=== PATIENT | female | born 1960 | race Caucasian/White ===

== ENCOUNTER 2021-07-20 18:31 | Observation (INO) | payer MEDICARE, MEDICAID, SELFPAY ==
--- NOTE | ~2021-07-20 | CT_ITS ---
EXAMINATION: CT abdomen pelvis w con INDICATION: Epigastric pain TECHNIQUE: Computed tomographic images of the abdomen and pelvis were obtained after the administrati on of 100 cc of Omnipaque 350 intravenous contrast. The dose-length product (DLP) was 1401.29 mGy-cm. Automated exposure control and iterative reconstruction technique were employed. COMPARISON: None available FINDINGS: Minimal dependent atelectasis is present in the lung bases. The heart size is normal. Punct ate calcifications in an otherwise normal spleen likely represent healed granulomatous disease. The l iver and pancreas are normal. There are stones in the gallbladder. There appears to be subtle fat str anding surrounding the gallbladder. The common bile duct is mildly dilated. There is a 2.7 cm mass of the left adrenal gland. There is a 2.3 cm mass of the right adrenal gland. In addition, calcificatio n is noted in the right adrenal gland. A 5 mm hypoattenuating lesion of the right kidney is too small to characterize but likely represents a cyst. Left kidney is unremarkable. No pathologically enlarge d abdominal or pelvic lymph nodes are identified. There is no free intraperitoneal gas or evidence of bowel obstruction. The appendix is normal. Colonic diverticulosis is present without evidence of div erticulitis. There is moderate lumbar spondylosis. There are changes of left total hip arthroplasty . IMPRESSION: 1. Cholelithiasis with possible mild fat stranding surrounding the gallbladder, consider early cholec ystitis. 2. Mild enlargement of the common bile duct of unclear etiology. 3. Bilateral adrenal masses, probably benign. In the absence of prior imaging, consider follow-up adr enal CT in 12 months. Reviewed, dictated and finalized at location F. IMPRESSION: 1. Cholelithiasis with possible mild fat stranding surrounding the gallbladder, consider early cholecystitis. 2. Mild enlargement of the common bile duct of unclear etiology. 3. Bilateral adrenal masses, probably benign. In the absence of prior imaging, consider follow-up adrenal CT in 12 months.
--- NOTE | ~2021-07-20 | US_ITS ---
EXAMINATION: US abdomen limited DATE: 07/21/2021 10:38 INDICATION: Acute cholecystitis TECHNIQUE: Multiple grayscale and Doppler ultrasound images of the abdomen were obtained. COMPARISON: None FINDINGS: The pancreatic head and body are normal in appearance. The pancreatic tail is not visualized. Liver has normal echogenicity and contour, with a smooth surface. No liver lesion identified. No intrahepat ic biliary duct dilation suspected. Portal venous flow was seen in the hepatopetal, normal direction and has normal Doppler waveform. Shadowing gallstones are seen within the lumen of the otherwise norm al-appearing gallbladder with no dilation or gallbladder wall thickening. Sonographic Matthew sign was reported as negative by the building surveyor.Common bile duct measures up to 4 mm in maximal diameter whi ch is normal. Visualized portion of the right kidney demonstrates normal echogenicity and contour wit h no hydronephrosis. Visualized proximal inferior vena cava is normal. IMPRESSION: 1. Cholelithiasis. No other findings to suggest acute cholecystitis. If there is continued clinical c oncern would consider HIDA scan for further evaluation. Reviewed, dictated and finalized at location B. IMPRESSION: 1. Cholelithiasis. No other findings to suggest acute cholecystitis. If there i s continued clinical concern would consider HIDA scan for further evaluation.
[2021-07-20 19:00] VITALS: BP 158/70; PULSE 95; RESP 16; TEMP 36.3; O2SAT 99
[2021-07-20 21:17] VITALS: BP 183/77; PULSE 98; RESP 18; O2SAT 97
[2021-07-20 21:37] VITALS: BP 176/77
--- NOTE | 2021-07-20 21:37 | ED.ABDPAIN ---
HPI - Abdominal Pain General Chief Complaint: Abdominal Pain Stated Complaint: constipation Time Seen by Provider: 07/20/21 21:27 Source: patient Mode of arrival: ambulatory Limitations: no limitations History of Present Illness HPI narrative: Patient is a 61-year-old female complaining of epigastric pain, sharp, was 10 out of 10 currently 4 out of 10, radiating to back that started tonight after eating. Patient denies any chest pain, shortness of breath, nausea, vomiting, diarrhea, diaphoresis, fever or chills. Related Data Allergies Allergy/AdvReac Type Severity Reaction Status Date / Time No Known Allergies Allergy Verified 07/20/21 21:47 Review of Systems Review of Systems: All systems reviewed & are unremarkable except as noted in HPI and below Constitutional: Constitutional: Denies body ache(s), Denies chills, Denies excessive sweating, Denies fatigue, Denies fever(s), Denies headache(s), Denies lethargy, Denies malaise, Denies weakness and Denies weight loss Eyes: Eyes: Denies blurry vision, Denies change in vision and Denies loss of vision ENT: Denies dizziness, Denies ear discharge, Denies headache(s), Denies lip swelling, Denies epistaxis, Denies nasal congestion, Denies neck pain, Denies throat swelling and Denies tongue swelling Cardiovascular: Cardiovascular: Denies chest pain, Denies chest pain at rest, Denies chest pain with activity, Denies diaphoresis, Denies rapid heart rate, Denies edema, Denies irregular heart rhythm, Denies lightheadedness, Denies palpitations, Denies dyspnea and Denies dyspnea on exertion Respiratory: Respiratory: Denies chest congestion, Denies cough, Denies hemoptysis, Denies dyspnea and Denies dyspnea on exertion Gastrointestinal: Gastrointestinal: Denies melena, Denies hematochezia, Denies diarrhea, Denies nausea, Denies vomiting and Denies hematemesis Musculoskeletal: Musculoskeletal: Denies abnormal gait, Denies deformity, Denies joint swelling, Denies limited range of motion, Denies neck pain and Denies numbness Neurologic: Denies Abnormal speech present, Denies abnormal gait, Denies confusion, Denies dizziness, Denies headache(s), Denies focal weakness, Denies loss of vision, Denies numbness, Denies Other visual disturbances, Denies Sensory deficit (Neuro) and Denies weakness Psychiatric: Psychiatric: Denies confusion, Denies depression, Denies auditory hallucinations, Denies homicidal ideation and Denies suicidal ideation Endocrine: Endocrine: Denies cold intolerance, Denies excessive sweating, Denies fatigue, Denies heat intolerance and Denies palpitations Hematologic/Lymphatic: Hematologic/Lymphatic: Denies easy bleeding and Denies easy bruising Allergic/Immunologic: Allergic/Immunologic: Denies lip swelling, Denies throat swelling and Denies tongue swelling PMFSH Comments Past medical history: Hypertension Family history: Unknown Social history: Positive for smoker, occasional EtOH use, no drug use Exam Const: General: cooperative, healthy appearing, comfortable, no acute distress, well developed, alert and awake; No confusion Orientation/consciousness: oriented to person, oriented to place, oriented to time, patient oriented x3 and No confusion Limitations: no limitations HENMT: Head: normal to inspection, normocephalic and atraumatic Ears: hearing grossly normal bilaterally, TM normal on the right and TM normal on the left General nose exam: Normal external nose present, Normal nares present and No nasal discharge present Face and sinus: normal facial exam Mouth: Yes Normal oral and palatal mucosa present, Yes lip normal, Yes tongue normal and Yes oropharynx normal Throat: posterior oropharynx normal, tonsils normal and uvula midline Eyes: General: appearance normal, both eyes and all related structures Pupils: Equal, round and reactive pupils present EOM: EOMs intact bilaterally Neck: Neck: normal visual inspection, full ROM, no lymphadenopathy and no meningeal signs
[2021-07-20] MEDS: MAG HYDROX/AL HYDROX/SIMETH 30 ML UDC PO (21:48)
[2021-07-20 21:55] LABS: Basophils Percent Auto 0.2 % (0.2-1.2); Hematocrit 45.2 % (37.0-47.0); Hemoglobin 14.3 g/dL (12.0-15.0); Immature Granulocyte Absolute 0.04 K/mm3 (0.00-0.031); Immature Granulocyte Percent A 0.4 % (0-0.5); Lymphocytes Absolute Auto 0.91 K/mm3 (0.9-3.2); Lymphocytes Percent Auto 8.8 % (18.3-44.2); Mean Corpuscular HGB Conc 31.6 g/dl (32-36); Mean Corpuscular Hemoglobin 30.9 pg (26-34); Mean Corpuscular Volume 97.6 fl (80-100); Mean Platelet Volume 11.3 fl (7.4-10.4); Monocytes Absolute Auto 0.3 K/mm3 (0.1-0.6); Monocytes Percent Auto 2.6 % (2.6-8.5); Neutrophils Absolute Auto 9.1 K/mm3 (1.3-6.7); Platelet Count Result 226 k/mm3 (150-375); Red Blood Count 4.63 M/mm3 (4.2-5.4); Red Cell Distribution Width 13.7 % (11.5-14.5); White Blood Count 10.3 K/mm3 (4.5-10.0)
[2021-07-20 22:06] LABS: Alanine Aminotransferase 352 U/L (4-35); Alkaline Phosphatase 121 U/L (38-126); Anion Gap 5 mmol/L (8-16); Aspartate Amino Transferase 557 U/L (14-36); Bilirubin,Total 0.9 mg/dL (0.2-1.3); Blood Urea Nitrogen 26 mg/dL (7-17); Calcium 8.7 mg/dL (8.4-10.2); Carbon Dioxide 30 mmol/L (22-30); Chloride 104 mmol/L (98-107); Estimated CRCL calculation 74 ml/min; Estimated Glomerular Filt Rate > 60; Glucose 142 mg/dL (65-110); Lipase 262 U/L (23-300); Potassium 5.1 mmol/L (3.4-5.0); Sodium 139 mmol/L (137-145)
[2021-07-20 22:08] VITALS: PULSE 94; RESP 18; O2SAT 99
[2021-07-20 22:18] LABS: Troponin I < 0.012 ng/mL (0.000-0.034)
--- NOTE | 2021-07-20 23:04 | PC.NURSE ---
Pt reports improved s/s after medication administration. Rates pain 0/10
[2021-07-20 23:27] VITALS: BP 180/82
--- NOTE | 2021-07-20 23:27 | PC.NURSE ---
Pt requesting update. This Rn explained to pt that EDP Edmonds is in room with critical patient and will update with results when available. Pt also states she did not take her HTN medications this AM (20mg Lisinopril)
[2021-07-20 23:54] VITALS: BP 175/87; PULSE 94; RESP 18; O2SAT 97
[2021-07-21] VITALS (22 sets, daily range): BP systolic 105–189; BP diastolic 35–88; PULSE 57–97; RESP 14–20; TEMP 35.8–37.2; O2SAT 93–100; BMI 45.2
[2021-07-21] MEDS: lisinopriL 20 MG TABLET PO ×2 (01:05→09:41)
[2021-07-21] MEDS: PIPERACILLIN/TAZOBACTAM SOD 4.5 GM in SODIUM CHLORIDE 0.9% IV 100 ML 200 ML IVPB (01:06)
--- NOTE | 2021-07-21 01:34 | ED.ABDPAIN ---
HPI - Abdominal Pain General Chief Complaint: Abdominal Pain Stated Complaint: constipation Time Seen by Provider: 07/20/21 21:27 Source: patient Mode of arrival: ambulatory Limitations: no limitations History of Present Illness HPI narrative: Pt presents with epigastric abdominal pain since after eating a [employer] for lunch. Pt denies vomiting or fever. Pt sasy she had an episode about a week ago which resolved. Pt also had a diarheal stool at that time which she said was very dark. MD elicited complaint: abdominal pain Pain Consistency: constant Location: epigastric and RUQ Severity: moderate Quality: cramping Migration to: no migration Exacerbating factors: eating Relieving factors: nothing Related Data Home Medications Medication Instructions Recorded Confirmed diclofenac sodium 75 mg PO BID 07/20/21 07/21/21 gabapentin 300 mg PO USEASDIRECTD 07/20/21 07/21/21 lisinopril 20 mg PO DAILY 07/20/21 07/21/21 mirabegron [Myrbetriq] 50 mg PO DAILY 07/20/21 07/21/21 omeprazole 40 mg PO DAILY 07/20/21 07/21/21 tizanidine 4 mg PO Q8-10H PRN 07/20/21 07/21/21 albuterol sulfate 90 mcg INHALATION BID PRN 07/21/21 07/21/21 cholecalciferol (vitamin D3) 1,250 mcg PO WEEKLY 07/21/21 07/21/21 hydrochlorothiazide 12.5 mg PO DAILY 07/21/21 07/21/21 tramadol 50 mg PO DAILY PRN 07/21/21 07/21/21 Allergies Allergy/AdvReac Type Severity Reaction Status Date / Time No Known Allergies Allergy Verified 07/21/21 01:10 Review of Systems Review of Systems: All systems reviewed & are unremarkable except as noted in HPI and below [facility] Family History Family History (Updated 07/21/21 @ 02:49 by Aretha Douglass RN) Mother H/O heart artery stent Hypertension Father Cerebrovascular accident Hypertension Other Cancer Exam Const: General: no acute distress Orientation/consciousness: patient oriented x3 Resp: Effort & Inspection: normal respiratory effort Auscultation: clear to auscultation bilaterally Cardio: Rate: regular rate Rhythm: regular rhythm GI: GI Palp: Yes Soft to palpation and Yes Tenderness to palpation present (GI) (epigastric and ruq) Auscultation: normal bowel sounds Rectal Exam: normal sphincter tone and heme negative stool Back/Spine/Pelvis: Back: no CVA tenderness Skin: General skin exam: normal color Rashes: no rashes Neuro: General: patient oriented x3, moves all extremities, no meningeal signs and no focal motor deficits Extrem: General: normal to inspection and no clubbing, cyanosis or edema Psych: Appearance: grossly normal Mental Status: mental status grossly normal Thought content: Yes Normal thought content present Course Vital Signs Vital signs: Vital Signs Temperature 97.3 F L 07/20/21 19:00 Pulse Rate 95 07/20/21 19:00 Respiratory Rate 16 07/20/21 19:00 Blood Pressure 158/70 H 07/20/21 19:00 Pulse Oximetry 99 07/20/21 19:00 Temperature 97.5 F L 07/21/21 02:47 Pulse Rate 95 07/21/21 02:47 Respiratory Rate 20 07/21/21 02:47 Blood Pressure 147/66 H 07/21/21 02:47 Pulse Oximetry 97 07/21/21 02:39 MDM - Abdominal Pain Lab Data Result diagrams: 07/20/21 21:49 07/20/21 21:49 Labs: Lab Results 07/20/21 07/20/21 Range/Units 21:49 21:49 WBC 10.3 H (4.5-10.0) K/mm3 RBC 4.63 (4.2-5.4) M/mm3 Hgb 14.3 (12.0-15.0) g/dL Hct 45.2 (37.0-47.0) % MCV 97.6 (80-100) fl MCH 30.9 (26-34) pg MCHC 31.6 L (32-36) g/dl RDW 13.7 (11.5-14.5) % Plt Count 226 (150-375) k/mm3 MPV 11.3 H (7.4-10.4) fl Immature Gran % (Auto) 0.4 (0-0.5) % Neut % (Auto) 88.0 H (45.5-73.1) % Lymph % (Auto) 8.8 L (18.3-44.2) % [place] % (Auto) 2.6 (2.6-8.5) % Eos % (Auto) 0.0 (0-4.4) % Baso % (Auto) 0.2 (0.2-1.2) % Lymph # (Auto) 0.91 (0.9-3.2) K/mm3 [place] # (Auto) 0.3 (0.1-0.6) K/mm3 Eos # (Auto) 0.0 (0-0.3) K/mm3 Baso # (Auto) 0.0 (0.0-0.1) K/mm3 Abs Immat Gran (a
--- NOTE | 2021-07-21 02:28 | ADMGEN ---
This patient, Amy Bojorquez, was admitted to Medical Room 244-. Patient/family oriented to hospital policies and general routines including ID bracelet, bed and alarms, visiting hours, pain management, procedures, bathroom and other care routines, personal items, smoking policy, room service/diet, and visiting hours. Information on how to activate the Rapid Response Team has been discussed. Patient/Family are encouraged to report perceived risks to care and to ask questions if they do not understand what they are told or what they should do.
--- NOTE | 2021-07-21 05:01 | PM.IMHP ---
H&P: HPI History of Present Illness Date/Time: 07/21/21 05:01 Chief Complaint: EPIGASTRIC PAIN. Narrative: This is a 61-year-old female past medical history significant for morbid obesity, hypertension, degenerative joint disease. Patient presents to the emergency room with acute onset of epigastric and right upper quadrant pain after eating at [employer], pain was accompanied by nausea but no vomiting, no fevers, no rigors, no chills, patient denies any weight loss, changes in his stool character, no hematemesis, no bright red blood per rectum, no melena, no hematochezia. Preliminary workup was significant for CT of abdomen and pelvis with cholecystitis. Patient is been admitted for further evaluation, management and treatment. Review of Systems Review of Systems: Epigastric and right upper quadrant pain. Constitutional: Constitutional: Denies chills, Denies fatigue, Denies fever(s), Denies malaise, Denies night sweats, Denies weakness and Denies weight loss Eyes: Eyes: Denies change in vision ENT: Denies dysphagia, Denies nasal congestion, Denies nasal discharge, Denies nasal obstruction and Denies odynophagia Cardiovascular: Cardiovascular: Denies chest pain, Denies pedal edema, Denies edema, Denies leg edema, Denies lightheadedness, Denies radiating jaw, neck or arm pain, Denies palpitations, Denies dyspnea on exertion and Denies orthopnea Respiratory: Respiratory: Denies cough Gastrointestinal: Gastrointestinal: Reports abdominal pain (Epigastric and right upper quadrant radiating to the back), Denies dyspepsia, Denies heartburn, Denies diarrhea, Reports nausea and Denies vomiting Genitourinary: Genitourinary: Denies dysuria Musculoskeletal: Musculoskeletal: Reports back pain and Reports arthralgias Integumentary/Breasts: Skin/Breast: Denies rash Neurologic: Denies vertigo, Denies dizziness, Denies focal weakness and Denies Sensory deficit (Neuro) Psychiatric: Psychiatric: Reports no additional psychiatric complaints and Reports as per HPI Endocrine: Endocrine: Denies cold intolerance, Denies flushing, Denies heat intolerance, Denies polyphagia, Denies polydipsia and Denies palpitations Hematologic/Lymphatic: Hematologic/Lymphatic: Reports no additional hematologic/lymphatic complaints and Reports as per HPI Allergic/Immunologic: Allergic/Immunologic: Reports no additional allergic/immunologic complaints and Reports as per HPI [facility] Family History Family History (Updated 07/21/21 @ 02:49 by Aretha Douglass RN) Mother H/O heart artery stent Hypertension Father Cerebrovascular accident Hypertension Other Cancer Social History Social History Smoking packs per day: 1 Smoking cigarettes per day: 20.0 Years smoked: 44 Smoking pack-years: 44.00 Smoking status: Current every day smoker Tobacco type: cigarettes Alcohol intake: never Substance use type: does not use Spiritual care concerns: No Meds Home Medications and Allergies Home Medications Medication Instructions Recorded Confirmed Type diclofenac sodium 75 mg PO BID 07/20/21 07/21/21 History gabapentin 300 mg PO USEASDIRECTD 07/20/21 07/21/21 History lisinopril 20 mg PO DAILY 07/20/21 07/21/21 History mirabegron [Myrbetriq] 50 mg PO DAILY 07/20/21 07/21/21 History omeprazole 40 mg PO DAILY 07/20/21 07/21/21 History tizanidine 4 mg PO Q8-10H PRN 07/20/21 07/21/21 History albuterol sulfate 90 mcg INHALATION BID PRN 07/21/21 07/21/21 History cholecalciferol (vitamin D3) 1,250 mcg PO WEEKLY 07/21/21 07/21/21 History hydrochlorothiazide 12.5 mg PO DAILY 07/21/21 07/21/21 History tramadol 50 mg PO DAILY PRN 07/21/21 07/21/21 History Allergies Allergy/AdvReac Type Severity Reaction Status Date / Time No Known Allergies Allergy Verified 07/21/21 02:57 Vital Signs Vital Signs - 24 hr 07/20/21 19:00 07/20/21 21:17 07/20/21 21:37 Temperature 97.3 F L Pulse Rate 95 98 Respiratory Rate 16 18 Blood Pressure 15
[2021-07-21] MEDS: MIRABEGRON 50 MG ER TABLET PO (09:40)
[2021-07-21] MEDS: PANTOPRAZOLE 40 MG TABLET PO ×2 (09:40→22:21)
[2021-07-21] MEDS: GABAPENTIN 300 MG CAPSULE PO ×2 (09:41→13:02)
[2021-07-21] MEDS: hydroCHLOROthiazide 12.5 MG CAPSULE PO (09:42)
[2021-07-21 11:06] LABS: Hematocrit 47.1 % (37.0-47.0); Hemoglobin 14.9 g/dL (12.0-15.0); Mean Corpuscular HGB Conc 31.6 g/dl (32-36); Mean Corpuscular Hemoglobin 30.9 pg (26-34); Mean Corpuscular Volume 97.7 fl (80-100); Mean Platelet Volume 11.4 fl (7.4-10.4); Platelet Count Result 196 k/mm3 (150-375); Red Blood Count 4.82 M/mm3 (4.2-5.4); Red Cell Distribution Width 13.8 % (11.5-14.5); White Blood Count 10.1 K/mm3 (4.5-10.0)
[2021-07-21 11:22] LABS: Alanine Aminotransferase 535 U/L (4-35); Albumin Level 4.1 g/dL (3.5-5.1); Alkaline Phosphatase 151 U/L (38-126); Anion Gap 5 mmol/L (8-16); Aspartate Amino Transferase 411 U/L (14-36); Bilirubin,Total 0.7 mg/dL (0.2-1.3); Blood Urea Nitrogen 21 mg/dL (7-17); Calcium 8.9 mg/dL (8.4-10.2); Carbon Dioxide 30 mmol/L (22-30); Chloride 105 mmol/L (98-107); Estimated CRCL calculation 65 ml/min; Estimated Glomerular Filt Rate 57; Glucose 99 mg/dL (65-110); Magnesium 2.3 mg/dL (1.6-2.3); Potassium 4.2 mmol/L (3.4-5.0); Sodium 140 mmol/L (137-145)
--- NOTE | 2021-07-21 11:28 | PM.CNGS ---
Assessment and Plan Assessment and plan (1) Acute cholecystitis: Code(s): K81.0 - Acute cholecystitis Status: Acute Assessment and Plan: CT scan reviewed and discussed with the patient in detail. There is evidence of cholelithiasis with possible cholecystitis. WBC count 10,000 and her AST/ALT were elevated. There was also findings of mild dilatation of the common bile duct on CT. A RUQ ultrasound was ordered and showed cholelithiasis with no other findings suggestive of cholecystitis. I discussed all of this with the patient and that her symptoms are likely related to her gallbladder. We discussed the option of trying to modify her diet and make lifestyle changes to prevent future attacks versus proceeding with a laparoscopic cholecystectomy, possible open, by Dr. Clemons under general anesthesia. Description of the procedure, risks, benefits, expected outcomes, and expected recovery were discussed with the patient in detail. She would like to proceed with surgery. Will add her onto the surgery schedule. Continue IV fluids, NPO status, and will give a dose of antibiotics pre-operatively. Thank you for allowing us to see the patient in consultation and we will continue to follow along with you. (2) Asthma: Code(s): J45.909 - Unspecified asthma, uncomplicated Status: Chronic Assessment and Plan: History of Asthma and reportedly undergoing workup as an outpatient for COPD. She is a long-term smoker. Increases risks for surgery. (3) Tobacco abuse: Code(s): Z72.0 - Tobacco use Status: Chronic Assessment and Plan: Encouraged cessation and discussed how this can increase her risks related with surgery. (4) Obesity, morbid, BMI 40.0-49.9: Code(s): E66.01 - Morbid (severe) obesity due to excess calories Status: Chronic Assessment and Plan: Encouraged lifestyle changes and diet changes to promote weight loss. She has been more sedentary as of late due to chronic back and chronic left hip pain. (5) Chronic back pain: Code(s): M54.9 - Dorsalgia, unspecified; G89.29 - Other chronic pain Status: Chronic Assessment and Plan: Currently takes Tramadol for her chronic back pain. (6) Hypertension: Code(s): I10 - Essential (primary) hypertension Status: Chronic Additional Plan I have discussed the patient's case and plan of care with Dr. Clemons. History of Present Illness Consult details Consult date: 07/21/21 Reason for consult: other (Possible acute cholecystitis) Requesting physician: Joshua Castaneda MD Narrative: This is a 61-year-old obese female with a history of hypertension, GERD, asthma, and tobacco abuse, who presented to the ER with complaints epigastric abdominal pain. She reports that yesterday for lunch, she had a cheeseburger from [employer] and shortly after eating developed epigastric abdominal pain. This was a sharp pain that radiated to her mid back. She reports associated nausea, but no vomiting. Her pain was constant and worsened over the next few hours. No alleviating factors. Due to the unrelenting pain, she presented to the ER. CT scan of the abdomen and pelvis showed cholelithiasis with mild fat stranding around the gallbladder, possible early cholecystitis, with mild enlargement of the common bile duct. Labs showed WBC count 10,300, total bilirubin 0.9, AST 557, ALT 352, alk phos 121, normal troponin, and normal lipase. The patient was admitted to the Hospitalist and made NPO. She was given one dose of IV Zosyn early this morning. Our service was consulted for possible acute cholecystitis. The patient is now seen on the medical floor. She states her pain has completely resolved, but she does still feel slightly tender in the epigastric area. She reports having a similar, more mild episode, at home about 1 week ago that resolved spontaneously. No other complaints at this time. She states that she is currently undergoing a pulmonary
[2021-07-21] MEDS: SODIUM CHLORIDE 0.9% IV 1,000 ML 100 ML IV CONT (11:50)
--- NOTE | 2021-07-21 13:02 | WPDANESEPPF ---
Anes - Initial Pre Proc Eval Procedure: Operation Date: 07/21/21 15:30 Proposed Procedures p Laparoscopic Cholecystectomy - Todd Clemons DO Date/Time: 07/21/21 13:02 Surgeon: Fauzia Lauren MD Pre Op Diagnosis: Acute Cholecystitis Patient Data Age: 61 Gender: F Height: 1.6 m Weight: 115.9 kg Last Vital Signs Temp 36.8 C 07/21/21 04: Pulse 83 07/21/21 12:00 Resp 20 07/21/21 04:26 BP 157/81 H 07/21/21 04:26 Pulse Ox 94 07/21/21 08:28 Allergies Allergy/AdvReac Type Severity Reaction Status Date / Time No Known Allergies Allergy Verified 07/21/21 02:57 Home Medications Medication Instructions Recorded Confirmed Type diclofenac sodium 75 mg PO BID 07/20/21 07/21/21 History gabapentin 300 mg PO USEASDIRECTD 07/20/21 07/21/21 History lisinopril 20 mg PO DAILY 07/20/21 07/21/21 History mirabegron [Myrbetriq] 50 mg PO DAILY 07/20/21 07/21/21 History omeprazole 40 mg PO DAILY 07/20/21 07/21/21 History tizanidine 4 mg PO Q8-10H PRN 07/20/21 07/21/21 History albuterol sulfate 90 mcg INHALATION BID PRN 07/21/21 07/21/21 History cholecalciferol (vitamin D3) 1,250 mcg PO WEEKLY 07/21/21 07/21/21 History hydrochlorothiazide 12.5 mg PO DAILY 07/21/21 07/21/21 History tramadol 50 mg PO DAILY PRN 07/21/21 07/21/21 History Laboratory Tests 07/20/21 07/20/21 07/21/21 21:49 21:49 11:00 WBC 10.3 K/mm3 H K/mm3 10.1 K/mm3 H K/mm3 (4.5-10.0) (4.5-10.0) RBC 4.63 M/mm3 M/mm3 4.82 M/mm3 M/mm3 (4.2-5.4) (4.2-5.4) Hgb 14.3 g/dL g/dL 14.9 g/dL g/dL (12.0-15.0) (12.0-15.0) Hct 45.2 % % 47.1 % H % (37.0-47.0) (37.0-47.0) MCV 97.6 fl fl 97.7 fl fl (80-100) (80-100) MCH 30.9 pg pg 30.9 pg pg (26-34) (26-34) MCHC 31.6 g/dl L g/dl 31.6 g/dl L g/dl (32-36) (32-36) RDW 13.7 % % 13.8 % % (11.5-14.5) (11.5-14.5) Plt Count 226 k/mm3 k/mm3 196 k/mm3 k/mm3 (150-375) (150-375) MPV 11.3 fl H fl 11.4 fl H fl (7.4-10.4) (7.4-10.4) Immature Gran % (Auto) 0.4 % % (0-0.5) Neut % (Auto) 88.0 % H % (45.5-73.1) Lymph % (Auto) 8.8 % L % (18.3-44.2) [place] % (Auto) 2.6 % % (2.6-8.5) Eos % (Auto) 0.0 % % (0-4.4) Baso % (Auto) 0.2 % % (0.2-1.2) Lymph # (Auto) 0.91 K/mm3 K/mm3 (0.9-3.2) [place] # (Auto) 0.3 K/mm3 K/mm3 (0.1-0.6) Eos # (Auto) 0.0 K/mm3 K/mm3 (0-0.3) Baso # (Auto) 0.0 K/mm3 K/mm3 (0.0-0.1) Abs Immat Gran (auto) 0.04 K/mm3 H K/mm3 (0.00-0.031) Absolute Neuts (auto) 9.1 K/mm3 H K/mm3 (1.3-6.7) Absolute Nucleated RBC 0.0 K/mm3 K/mm3 (0.0-0.012) Nucleated RBC % 0.0 % % (0.0-0.2) Sodium 139 mmol/L mmol/L (137-145) Potassium 5.1 mmol/L H mmol/L (3.4-5.0) Chloride 104 mmol/L mmol/L (98-107) Carbon Dioxide 30 mmol/L mmol/L (22-30) Anion Gap 5 mmol/L L mmol/L (8-16) BUN 26 mg/dL H mg/dL (7-17) Creatinine 0.90 mg/dL mg/dL (0.7-1.0) Estim Creat Clear Calc 74 ml/min ml/min Estimated GFR > 60 (59 - ) Glucose 142 mg/dL H mg/dL (65-110) Calcium 8.7 mg/dL mg/dL (8.4-10.2) Magnesium Total Bilirubin 0.9 mg/dL mg/dL (0.2-1.3) AST 557 U/L H U/L (14-36) ALT 352 U/L H U/L (4-35) Alkaline Phosphatase 121 U/L U/L (38-126) Troponin I < 0.012 ng/mL ng/mL (0.000-0.034) Total Protein 7.0 g/dL g/dL (6.3-8.2) Albumin 4.0 g/dL g/dL (3.5-5.1) Lipase 262 U/L U/L (23-300) 07/21/21 11:00 WBC RBC Hgb Hct MCV MCH MCHC RDW Plt Count MPV Immature Gran % (Auto) Neut % (Auto) Lymph % (Auto) [place] % (Auto) Eos % (Auto) Baso % (Auto)
--- NOTE | 2021-07-21 14:12 | PM.IMPN ---
Progress Note: A&P Assessment and Plan (1) Acute epigastric pain: Code(s): R10.13 - Epigastric pain Status: Acute Assessment and Plan: Patient found to have acute cholecystitis Admit to regular medical floor\ NPO IV fluids running Pain management 07/21/2021 Interval history: morbidly obese with right upper quadrant pain with her nausea and vomiting, CT scan of the abdomen and ultrasound suspicious for cholelithiasis without acute cholecystitis patient was seen by general surgery and had decided to have a cholecystectomy which is scheduled for later today will continue to monitor further recommendation to follow. (2) Acute cholecystitis: Code(s): K81.0 - Acute cholecystitis Status: Acute Assessment and Plan: Antibiotics ongoing (3) Morbid obesity with BMI of 40.0-44.9, adult: Code(s): E66.01 - Morbid (severe) obesity due to excess calories; Z68.41 - Body mass index [BMI] 40.0-44.9, adult Status: Deleted Assessment and Plan: Lifestyle and diet modifications Subjective Date/time seen: 07/21/21 14:12 Chief Complaint: EPIGASTRIC PAIN. HPI-Narrative: This is a 61-year-old female past medical history significant for morbid obesity, hypertension, degenerative joint disease. Patient presents to the emergency room with acute onset of epigastric and right upper quadrant pain after eating at [employer], pain was accompanied by nausea but no vomiting, no fevers, no rigors, no chills, patient denies any weight loss, changes in his stool character, no hematemesis, no bright red blood per rectum, no melena, no hematochezia. Preliminary workup was significant for CT of abdomen and pelvis with cholecystitis. Patient is been admitted for further evaluation, management and treatment. 07/21/2021 Interval history: morbidly obese with right upper quadrant pain with her nausea and vomiting, CT scan of the abdomen and ultrasound suspicious for cholelithiasis without acute cholecystitis patient was seen by general surgery and had decided to have a cholecystectomy which is scheduled for later today will continue to monitor further recommendation to follow. Review of Systems Review of Systems: All systems reviewed & are unremarkable except as noted in HPI and below Exam Narrative: morbidly obese Patient is comfortable, NAD HEENT: eyes are clear and none icteric LUNGS: normal respiratory effort ABD: distended Lower extremities: no edema SKIN: nonjaundiced Neuro: grossly intact. Objective Data Vital Signs Vital Signs: Vital Signs - 24 hr 07/20/21 19:00 07/20/21 21:17 07/20/21 21:37 Temperature 97.3 F L Pulse Rate 95 98 Respiratory Rate 16 18 Blood Pressure 158/70 H 183/77 H 176/77 H Pulse Oximetry 99 97 07/20/21 22:08 07/20/21 23:27 07/20/21 23:54 Temperature Pulse Rate 94 94 Respiratory Rate 18 18 Blood Pressure 180/82 H 175/87 H Pulse Oximetry 99 97 07/21/21 01:04 07/21/21 02:12 07/21/21 02:39 Temperature 97.5 F L Pulse Rate 93 92 95 Respiratory Rate 16 16 20 Blood Pressure 189/88 H 165/79 H 147/66 H Pulse Oximetry 96 97 97 07/21/21 02:47 07/21/21 04:00 07/21/21 04:26 Temperature 97.5 F L 98.2 F Pulse Rate 95 93 97 Respiratory Rate 20 20 Blood Pressure 147/66 H 157/81 H Pulse Oximetry 94 07/21/21 08:00 07/21/21 08:28 07/21/21 12:00 Temperature Pulse Rate 82 83 Respiratory Rate Blood Pressure Pulse Oximetry 94 Intake/Output Intake/Output: Intake & Output 07/18/21 07/19/21 07/20/21 07/21/21 23:59 23:59 23:59 23:59 Intake Total 100 Balance 100 Meds/Results Medications: Active Medications Generic Name Dose Route Start Last Admin Trade Name Freq PRN Reason Stop Dose Admin Albuterol 2 puff 07/21/21 08:46 Albuterol Sulfate (*Sp) Aerosol 1 Puff INHALATION Q12HRT PRN Shortness Of Breath Ergocalciferol 50,000 unit 07/21/21 09:00 07/21/21 09:36 Ergocalciferol 50,000 Uni
[2021-07-21] MEDS: LACTATED RINGERS 1,000 ML 30 ML IV CONT ×2 (14:37→16:23)
[2021-07-21] MEDS: ACETAMINOPHEN 500 MG TABLET 1000 MG PO (14:37)
--- NOTE | 2021-07-21 14:58 | WPDHPUPDATE1 ---
History and Physical Update Update Date/Time: 07/21/21 14:58 History and Physical has been reviewed, including an updated exam of the patient. There are NO changes in the patient's condition. Risks, benefits, and alternatives have been discussed and questions answered. Patient agrees to proceed with procedure.
[2021-07-21] MEDS: ceFAZolin 2 GM/D5W 50 ML 2 GM/50 ML BAG IVPB (15:10)
--- NOTE | 2021-07-21 16:12 | W.PM.PROC2 ---
Procedure Note - Detailed Date of Procedure 07/21/21 Pre-op Diagnosis Acute Cholecystitis Post-op Diagnosis Same Procedure Performed Laparoscopic Cholecystectomy Surgeon Todd Clemons, DO Anesthesia General and Local (0.5% bupivacaine) Indications This is a 61-year-old woman who presented to the emergency department overnight with right upper quadrant abdominal pain. She was having severe pain and had a similar episode to this about 1 week ago ago but was not as severe. In the emergency department she was noted to have elevated liver enzymes and elevated white blood count. Her bilirubin was normal. A CT of her abdomen pelvis showed evidence of acute cholecystitis with gallstones. She was admitted for further treatment. Discussions were made with the patient about treatment options and decision was made to proceed with laparoscopic cholecystectomy, possible open. Findings Laparoscopic cholecystectomy was performed. The gallbladder did appear somewhat dilated and had some chronic gallbladder thickening. The neck of the gallbladder contained many small stones that were also extending into the proximal cystic duct. The more distal cystic duct appeared free of stones. The gallbladder was removed and sent to the lab for pathology. Description of Procedure Procedure as well as risks, benefits, and alternatives were discussed with patient. Written consent was obtained and placed in chart prior to procedure. The patient was brought back to surgical suite. Patient was placed in supine position on operating table. Time-out was done to confirm patient and procedure. Patient was then intubated by the anesthesia department. Abdomen was prepped and draped in sterile fashion using chlorhexidine prep. 0.5% bupivacaine with epinephrine was infiltrated at each site of incision. A 5 millimeter incision was made near the umbilicus, and a 5 millimeter Optiview trocar was advanced through the abdominal layers under direct visualization. Once inside the abdominal cavity, carbon dioxide was insufflated to create a pneumoperitoneum. The camera was inserted and the abdomen was inspected. No immediate abnormalities were identified. The patient was placed in reverse Trendelenburg position and rotated slightly to the left. An 11 millimeter incision was made in the subxiphoid region, and an 11 millimeter trocar was inserted under direct visualization. Two 5 millimeter incisions were made in the right upper quadrant, and two 5 millimeter trocars were inserted under direct visualization. The gallbladder was identified and grasped at the fundus and retracted superiorly. It was then grasped at the infundibulum retracted laterally. Careful dissection around the neck of the gallbladder was performed using blunt dissection with a [place] grasper and hook electrocautery. The cystic duct was identified, and a window was created behind it. The cystic artery was also identified and a window was created behind it. The critical view of safety was identified, visualizing the cystic duct running directly into the neck of the gallbladder, and the cystic artery running directly into the wall of the gallbladder. A 5 millimeter clip telephone answerer was then used to place 2 clips proximally and 1 clip distally on both the cystic duct and cystic artery. They were then both transected using endoscopic scissors. Once safely away from the eh hepatitis, the gallbladder was dissected free from the liver bed using hook electrocautery. Hemostasis was achieved along the way. The gallbladder was removed completely and then removed through the subxiphoid port. The liver bed was then inspected. Hemostasis appeared adequate, and our clips appeared secure. The area was gently irrigated with sterile saline. No other abnormalities were seen. The patient was flattened out in bed, and 1 final inspection was made around the abdominal cavity. The subxiphoid port was removed, and a Randy Garcia cone was us
[2021-07-21] MEDS: fentaNYL CITRATE INJ (*CRX) 100 MCG/2 ML VIAL 25 MCG IV PUSH ×6 (16:48→17:05)
--- NOTE | 2021-07-21 16:52 | SUR.PHASEI ---
1645: Simple mask removed.
--- NOTE | 2021-07-21 17:16 | SUR.PHASEI ---
Patient's O2 sats keep dropping with IV pain meds so RN isn't giving anymore in PACU.
--- NOTE | 2021-07-21 17:43 | PC.NURSE ---
Patient returned from surgery at 1742
[2021-07-21] MEDS: GABAPENTIN 300 MG CAPSULE 600 MG PO (22:20)
[2021-07-21] MEDS: HEPARIN SODIUM 5,000 UNITS/ML VIAL 5000 UNITS SUB-Q (22:21)
[2021-07-22] VITALS (7 sets, daily range): BP systolic 114–135; BP diastolic 55–60; PULSE 74–81; RESP 18; TEMP 36.1–36.8; O2SAT 98
[2021-07-22 05:35] LABS: Hemoglobin 13.8 g/dL (12.0-15.0); Mean Corpuscular HGB Conc 30.7 g/dl (32-36); Mean Corpuscular Hemoglobin 30.8 pg (26-34); Mean Corpuscular Volume 100.4 fl (80-100); Mean Platelet Volume 11.6 fl (7.4-10.4); Platelet Count Result 215 k/mm3 (150-375); Red Blood Count 4.48 M/mm3 (4.2-5.4)
[2021-07-22] MEDS: HEPARIN SODIUM 5,000 UNITS/ML VIAL 5000 UNITS SUB-Q ×2 (05:48→13:20)
[2021-07-22 05:52] LABS: Alanine Aminotransferase 381 U/L (4-35); Albumin Level 4.1 g/dL (3.5-5.1); Alkaline Phosphatase 126 U/L (38-126); Anion Gap 3 mmol/L (8-16); Aspartate Amino Transferase 170 U/L (14-36); Bilirubin,Total 0.3 mg/dL (0.2-1.3); Blood Urea Nitrogen 17 mg/dL (7-17); Calcium 8.9 mg/dL (8.4-10.2); Carbon Dioxide 34 mmol/L (22-30); Chloride 103 mmol/L (98-107); Estimated CRCL calculation 55 ml/min; Estimated Glomerular Filt Rate 46; Glucose 114 mg/dL (65-110); Potassium 5.8 mmol/L (3.4-5.0); Sodium 140 mmol/L (137-145)
[2021-07-22] MEDS: HYDROcodone/acetaminophen (*CRX) 5-325 MG TABLET 1 TAB PO (05:52)
[2021-07-22] MEDS: GABAPENTIN 300 MG CAPSULE PO ×2 (08:09→13:20)
[2021-07-22] MEDS: PANTOPRAZOLE 40 MG TABLET PO (08:10)
[2021-07-22] MEDS: hydroCHLOROthiazide 12.5 MG CAPSULE PO (08:10)
[2021-07-22] MEDS: MIRABEGRON 50 MG ER TABLET PO (08:10)
[2021-07-22] MEDS: lisinopriL 20 MG TABLET PO (08:10)
--- NOTE | 2021-07-22 09:55 | PM.PNGS ---
Progress Note: A&P Assessment and Plan (1) Acute cholecystitis: Code(s): K81.0 - Acute cholecystitis Status: Acute Assessment and Plan: Doing well POD#1 from laparoscopic cholecystectomy. Tolerating her diet and pain is well controlled. Okay from our standpoint to discharge the patient when okay with hospitalist. Follow-up in [address] Clemons. Continue low-fat diet. (2) Tobacco abuse: Code(s): Z72.0 - Tobacco use Status: Chronic Assessment and Plan: Encouraged cessation. F/u with PCP for management. (3) Obesity, morbid, BMI 40.0-49.9: Code(s): E66.01 - Morbid (severe) obesity due to excess calories Status: Chronic (4) Chronic back pain: Code(s): M54.9 - Dorsalgia, unspecified; G89.29 - Other chronic pain Status: Chronic Assessment and Plan: Currently takes Tramadol for her chronic back pain. Will send a script for a few [place] to have additionally to help control her post-op pain as needed. She only takes one Tramadol daily and we discussed how to safely use the [place] additionally. We also discussed risks with opioid use and how to transition to Tylenol for her pain as it improves over the next few days. (5) Hypertension: Code(s): I10 - Essential (primary) hypertension Status: Chronic Subjective Subjective Date/Time Seen: 07/22/21 08:55 Post Op day: 1 (Laparoscopic cholecystectomy) Patient reports: feels better, tolerating liquids well, voiding w/o difficulty, flatus, no bowel movement and afebrile Interval history: Patient seen and examined. She reports feeling ?great? this morning. She reports only minimal soreness primarily at her epigastric incision. Pain is well controlled. She did take [place] early this morning to help with her incisional pain. She is tolerating liquids without any nausea or vomiting. She is tolerating activity. No new complaints this morning. Review of Systems Review of Systems: All systems reviewed & are unremarkable except as noted in HPI and below Constitutional: Constitutional: Reports as per HPI, Reports no additional constitutional complaints, Denies chills and Denies fever(s) Cardiovascular: Cardiovascular: Reports no additional cardiovascular complaints, Denies chest pain and Denies leg edema Respiratory: Respiratory: Reports no additional respiratory complaints, Denies cough and Denies dyspnea Gastrointestinal: Gastrointestinal: Reports as per HPI and Reports no additional gastrointestinal complaints Neurologic: Reports system reviewed and no additional complaints, except as documented, Denies Abnormal speech present and Denies focal weakness Exam Const: General: comfortable, no acute distress, alert and awake Nutritional Appearance: obese Orientation/consciousness: patient oriented x3 GI: Inspection: non-distended and incision (Abdominal incisions dry and intact.) GI Palp: Yes Soft to palpation, Yes Tenderness to palpation present (GI) (incisional) and No Guarding due to palpation present (GI) Auscultation: normal bowel sounds Neuro: General: moves all extremities and no focal motor deficits Extrem: General: no clubbing, cyanosis or edema and no calf tenderness Psych: Insight: Good insight present (Psych) Judgement: Good judgement present (Psych) Objective Data Vital Signs Vital Signs: Vital Signs - 24 hr 07/21/21 12:00 07/21/21 14:45 07/21/21 16:23 Temperature 99.0 F 97.2 F L Pulse Rate 83 80 65 Respiratory Rate 20 18 Blood Pressure 150/67 H 107/35 L Pulse Oximetry 96 96 07/21/21 16:35 07/21/21 16:40 07/21/21 16:55 Temperature Pulse Rate 73 70 69 Respiratory Rate 18 16 18 Blood Pressure 109/48 L 133/66 105/62 Pulse Oximetry 100 100 99 07/21/21 17:10 07/21/21 17:25 07/21/21 17:31 Temperature 96.8 F L Pulse Rate 67 57 L 74 Respiratory Rate 15 14 15 Blood Pressure 137/59 L 144/70 H 145/70 H Pulse Oximetry 93 100 100 07/21/21 17:46 07/21/21 18:16 0
[2021-07-22] MEDS: SODIUM ZIRCONIUM CYCLOSILICATE 10 GM POWD.PACK PO (10:12)
--- NOTE | 2021-07-22 10:36 | WPDANESPN ---
Anes - Prog Note Post-Op Date/Time: 07/22/21 10:36 Cardiovascular status: normal Respiratory status: normal Airway patency: baseline Mental status: baseline Post-Op hydration status: normal Vital Signs: Last Vital Signs Temp 98.2 F 07/22/21 07:16 Pulse 81 07/22/21 08:00 Resp 18 07/22/21 07:16 BP 114/55 L 07/22/21 07:16 Pulse Ox 98 07/22/21 08:00 Pain Score (VAS): 04/06 I/O: Intake & Output 07/21/21 07/22/21 07/22/21 23:59 07:59 15:59 Intake Total 700 750 Output Total 800 900 Balance -100 -150 Laboratory Tests 07/22/21 04:48 07/22/21 04:48 07/21/21 07/21/21 07/21/21 11:00 11:00 13:31 WBC 10.1 H RBC 4.82 Hgb 14.9 Hct 47.1 H MCV 97.7 MCH 30.9 MCHC 31.6 L RDW 13.8 Plt Count 196 MPV 11.4 H Sodium 140 Potassium 4.2 Chloride 105 Carbon Dioxide 30 Anion Gap 5 L BUN 21 H Creatinine 1.00 Estim Creat Clear Calc 65 Estimated GFR 57 L Glucose 99 Calcium 8.9 Magnesium 2.3 Total Bilirubin 0.7 AST 411 H ALT 535 H Alkaline Phosphatase 151 H Total Protein 7.0 Albumin 4.1 Blood Type A Positive Antibody Screen Negative 07/22/21 07/22/21 04:48 04:48 WBC 11.0 H RBC 4.48 Hgb 13.8 Hct 45.0 MCV 100.4 H MCH 30.8 MCHC 30.7 L RDW 14.0 Plt Count 215 MPV 11.6 H Sodium 140 Potassium 5.8 H Chloride 103 Carbon Dioxide 34 H Anion Gap 3 L BUN 17 Creatinine 1.20 H Estim Creat Clear Calc 55 Estimated GFR 46 L Glucose 114 H Calcium 8.9 Magnesium Total Bilirubin 0.3 AST 170 H ALT 381 H Alkaline Phosphatase 126 Total Protein 7.0 Albumin 4.1 Blood Type Antibody Screen Post-procedural complaints: none Patient Feedback: Patient satisfied with anesthetic care.
--- NOTE | 2021-07-22 12:12 | PM.DS ---
DS: Admitting Diagnosis Discharge Date 07/22/2021 Admitting Diagnosis epigastric pain DS: Discharge Diagnosis Discharge Diagnosis (1) Acute epigastric pain: Code(s): R10.13 - Epigastric pain Status: Acute Assessment and Plan: Patient found to have acute cholecystitis Admit to regular medical floor\ NPO IV fluids running Pain management 07/21/2021 Interval history: morbidly obese with right upper quadrant pain with her nausea and vomiting, CT scan of the abdomen and ultrasound suspicious for cholelithiasis without acute cholecystitis patient was seen by general surgery and had decided to have a cholecystectomy which is scheduled for later today will continue to monitor further recommendation to follow. (2) Acute cholecystitis: Code(s): K81.0 - Acute cholecystitis Status: Acute Assessment and Plan: Antibiotics ongoing (3) Morbid obesity with BMI of 40.0-44.9, adult: Code(s): E66.01 - Morbid (severe) obesity due to excess calories; Z68.41 - Body mass index [BMI] 40.0-44.9, adult Status: Deleted Assessment and Plan: Lifestyle and diet modifications DS: Summary Hospital Course Reason for hospitalization: Chief Complaint: EPIGASTRIC PAIN. Narrative: This is a 61-year-old female past medical history significant for morbid obesity, hypertension, degenerative joint disease. Patient presents to the emergency room with acute onset of epigastric and right upper quadrant pain after eating at [employer], pain was accompanied by nausea but no vomiting, no fevers, no rigors, no chills, patient denies any weight loss, changes in his stool character, no hematemesis, no bright red blood per rectum, no melena, no hematochezia. Preliminary workup was significant for CT of abdomen and pelvis with cholecystitis. Patient is been admitted for further evaluation, management and treatment. Hospital Course: Patient found to have acute cholecystitis Admit to regular medical floor\ NPO IV fluids running Pain management 07/21/2021 Interval history: morbidly obese with right upper quadrant pain with her nausea and vomiting, CT scan of the abdomen and ultrasound suspicious for cholelithiasis without acute cholecystitis patient was seen by general surgery and had decided to have a cholecystectomy which is scheduled for later today will continue to monitor further recommendation to follow. patient with cholelithiasis and abdominal pain was seen by general surgeon and patient had a cholecystectomy patient tolerated the procedure, POD#1 patient clinically stable tolerating her diet will discharge patient today Status at Discharge Functional status at discharge: independent ambulation Overall status at discharge: patient is back to baseline Time Spent with Patient Time attestation: Total time spent providing and/or coordinating discharge services: Patient was seen and examined at the time of the discharge Condition at discharge is stable Code status: Full code. Time spent preparing discharge summary, discharge medications, discussing discharge planning with onsite case manager and patient is 35 minutes. Time spent: Greater than 30 minutes Exam Narrative: morbidly obese Patient is comfortable, NAD HEENT: eyes are clear and none icteric LUNGS: normal respiratory effort ABD: distended Lower extremities: no edema SKIN: nonjaundiced Neuro: grossly intact. DS: Data Data Completed and Pending Pending studies at discharge: Pending at discharge 07/21/21 15:31 Surgical [PTH] Routine Labs on day of discharge: Labs from last 24 hours 07/22/21 07/22/21 07/21/21 04:48 04:48 13:31 WBC 11.0 H RBC 4.48 Hgb 13.8 Hct 45.0 MCV 100.4 H MCH 30.8 MCHC 30.7 L RDW 14.0 Plt Count 215 MPV 11.6 H Sodium 140 Potassium 5.8 H Chloride 103 Carbon Dioxide 34 H Anion Gap 3 L BUN 17 Creatinine 1.20 H Estim Creat Clear Calc 55 Estimated GFR 46 L
[2021-07-22 15:02] LABS: Anion Gap 6 mmol/L (8-16); Blood Urea Nitrogen 16 mg/dL (7-17); Calcium 9.1 mg/dL (8.4-10.2); Carbon Dioxide 34 mmol/L (22-30); Chloride 97 mmol/L (98-107); Estimated CRCL calculation 59 ml/min; Estimated Glomerular Filt Rate 51; Glucose 111 mg/dL (65-110); Potassium 4.2 mmol/L (3.4-5.0); Sodium 137 mmol/L (137-145)
== END 2021-07-22 15:50 | disposition home or self-care (01) ==
LOC: ANHED 07-21 00:29 → ANH2MED 07-21 03:59
PROVIDERS: Emergency Medicine; Surgery; Admitting Provider Internal Medicine; Emergency Provider Emergency Medicine; PCP Internal Medicine Gastroenterology; Visit Provider Family Medicine
PROC: 0FT44ZZ Resection of Gallbladder, Percutaneous Endoscopic Approach (ICD-10-PCS; CPT 47562; principal; 2021-07-21 15:30)
DX: K81.0 Acute cholecystitis (principal); R10.13 Epigastric pain; I10 Essential (primary) hypertension; E66.01 Morbid (severe) obesity due to excess calories; Z68.42 Body mass index [BMI] 45.0-49.9, adult; M19.90 Unspecified osteoarthritis, unspecified site; F17.210 Nicotine dependence, cigarettes, uncomplicated; M54.9 Dorsalgia, unspecified; G89.29 Other chronic pain; J45.909 Unspecified asthma, uncomplicated; Z79.891 Long term (current) use of opiate analgesic
CPT/HCPCS: 47562; 36415; 74177; 76705; 80048; 80053; 83690; 83735; 84484; 85025; 85027; 86850; 86900; 86901; 88304; 96361; 96365; 96367; 96372; 96375; 99285; A9270; G0378; J0690; J1100; J1644; J2405; J2543; J2704; J2710; J3010; J7030; J7120; Q9967

== ENCOUNTER 2021-08-11 09:16 | Outpatient (CLI) | payer MEDICARE, MEDICAID, SELFPAY ==
--- NOTE | ~2021-08-11 | PE_ITS ---
EXAMINATION: PET skull to mid thigh DATE: 08/11/2021 11:06 INDICATION: Solitary pulmonary nodule. TECHNIQUE: Blood glucose level was 99 mg/dL. 9.941 mCi of 18-fluorodeoxyglucose (18-FDG) was administ ered i.v. Low dose computed tomography (CT) images were acquired from the base of the brain to the pr oximal thighs for attenuation correction and anatomic localization. Automated exposure control was em ployed. Dose-length product (DLP) was 1104 mGy-cm. Positron emission tomography (PET) images were acq uired in the same distribution. COMPARISON: CT abdomen and pelvis 07/20/2021 FINDINGS: Head/neck: There is increased activity in the pharynx, oral cavity, glottis and paraspinal muscles wi thout abnormal CT correlate, likely physiologic. There are no pathologically enlarged lymph nodes. Chest: Calcified left lung nodules and calcified left hilar and mediastinal lymph nodes are consisten t with old granulomatous disease. There is mild emphysema. No pleural effusion. The heart size is nor mal. No pericardial effusion. Abdomen/pelvis/proximal thighs: The liver is normal. There are changes of cholecystectomy. Calcificat ions in the spleen are consistent with old granulomatous disease. The pancreas is normal. There are c oarse calcifications in right adrenal gland. There is a 2.2 cm mass in left adrenal gland measuring l ow-attenuation without increased activity, likely an adenoma. The kidneys are normal. There are no di lated loops of bowel. There is diverticulosis of the colon without evidence of diverticulitis. The ap pendix is normal. There are no pathologically enlarged lymph nodes. There is no free intraperitoneal fluid. There is a total left hip arthroplasty. IMPRESSION: 1. No specific evidence of malignancy. Reviewed, dictated and finalized at location B.
[2021-08-11 09:47] LABS: Glucose Point of Care 99 mg/dl (65-105)
== END 2021-08-11 09:17 | disposition home or self-care (01) ==
PROVIDERS: PCP Internal Medicine Gastroenterology
DX: R91.1 Solitary pulmonary nodule (principal)
CPT/HCPCS: 78815; A9552